=== PATIENT | female | born 1985 | race American Indian/Alaskan Native ===

== ENCOUNTER 2018-05-19 01:33 | Emergency (ER) | payer SELFPAY ==
[2018-05-19 05:02] LABS: Bilirubin,Urine NEG (Negative); Blood,Urine NEG (Negative); Color,Urine Yellow (Yellow); Mucus,Urine 2+ /HPF
[2018-05-19] MEDS ORDERED: FLAGYL PO ONE (07:15)
[2018-05-19] MEDS ORDERED: ZITHROMAX PO ONE (07:16)
--- NOTE | 2018-05-19 07:26 | Emergency Department Report ---
ED Dysuria HPI - HPI Chief Complaint: Urogenital-Female Stated Complaint: VAG D/C Time Seen by Provider: 05/19/18 07:13 Duration: 3 Days Severity: Mild Symptoms: Dysuria: Yes (VAG DC GUILLERMO IN AM YELLOW. 1 PARNTER. HAD TUBAL), Frequency: No, Suprapubic Pain: No, Flank Pain: No, Fever: No, Hematuria: No, Abdominal Pain: No, Previous UTI's: No ED Review of Systems ROS: Stated complaint: VAG D/C Other details as noted in HPI Comment: All other systems reviewed and negative Constitutional: no symptoms reported. denies: chills, fever Respiratory: no symptoms reported Endocrine: no symptoms reported Gastrointestinal: other (TUBAL). denies: abdominal pain, nausea, vomiting, diarrhea, constipation, hematemesis, melena, hematochezia Genitourinary: dysuria, discharge (YELLOW), other (LMP 1 M AGO; TUBAL; 1 SEXUAL PARTNER). denies: urgency, frequency, hematuria, abnormal menses, dyspareunia Skin: denies: rash, lesions ED Past Medical Hx - Past Medical History Previous Medical History?: No - Surgical History Past Surgical History?: Yes Additional Surgical History: tubaligation, tonsilectomy adenoids, keloid removed from ear - Family History Family history: no significant - Social History Smoking Status: Never Smoker Substance Use Type: Alcohol, Marijuana - Medications Home Medications: Home Medications Medication Instructions Recorded Confirmed Last Taken Type metroNIDAZOLE [Flagyl] 500 mg PO Q12HR #14 tab 05/19/18 Unknown Rx Dysuria Exam - Exam General: Vital signs noted. No distress. Alert and acting appropriately. Exam: Yes Moist Mucous Membranes, No CVA Tenderness, No Abdominal Tenderness, No Rigidity or Guarding Exam: PT UPSET THAT SHE HAS BEEN WAITING SO LONG. DENIES PREVIOUS STI. FROM [place]. 1 SEX PARTNER. YELLOW DC FOR 3 DAYS. ABOUT TO START PERIOD. TUBAL YEARS AGO. PARTNER WO SYMPTOMS. NO ABD TENDERNESS. PT ASLEEP AND COMFORTABLE WO FEVER. WALKING WO DIFFICULTY. Labs: Lab Results 05/19/18 Range/Units 04:37 Urine Color Yellow (Yellow) Urine Turbidity Clear (Clear) Urine pH 6.0 (5.0-7.0) Ur Specific [place] 1.030 (1.003-1.030) Urine Protein 30 mg/dl (Negative) mg/dL Urine Glucose (UA) Neg (Negative) mg/dL Urine Ketones Tr (Negative) mg/dL Urine Blood Neg (Negative) Urine Nitrite Neg (Negative) Urine Bilirubin Neg (Negative) Urine Urobilinogen 4.0 (<2.0) mg/dL Ur Leukocyte Esterase Tr (Negative) Urine WBC (Auto) 9.0 H (0.0-6.0) /HPF Urine RBC (Auto) 4.0 (0.0-6.0) /HPF U Epithel Cells (Auto) 1.0 (0-13.0) /HPF Urine Mucus 2+ /HPF ED Course Vital Signs 05/19/18 04:11 Temperature 98.8 F Pulse Rate 91 H Respiratory 14 Rate Blood Pressure 141/76 O2 Sat by Pulse 100 Oximetry - Reevaluation(s) Reevaluation #1: 05/19/18 07:43 EXAM COMPLETED NON TOXIC NON ILL. NO FEVER. NO CVA TENDERNESS. COMFORTABLE. AMBULATORY AND TAKING PO. LABS REVIEWED URINE NO NITRATES OR LEUKS YELLOW DC A PERIOD ALLERGIC TO CEPHALEXIN- THROAT SWELLING URINE SENT FOR GC URINE PREG IS PENDING DESPITE TUBAL WILL EVAL. PT REFUSES PELVIC BC SHE HAS HAD TO WAIT AND HAS TO BE AT WORK 8AM WILL TX WITH FLAGYL AT HOME GIVEN S/S LIKELY BV. DISCUSSED ETOH. AZITHRO. NO ROCEPHIN DT ALLERGY- DISCUSSED W PT. 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 REFERRAL GIVEN Reevaluation #2: 05/19/18 07:46 MAY DC WHEN U PREG IS DONE ED Medical Decision Making - Lab Data UA NEG NITRATE AND LEUK GC URINE SEND OUT P PREG P - Medical Decision Making URINE NO LEUK NO NITRATES GC URINE P REFUSES PELVIC NEEDS TO BE AT WORK 0800 FLAGYL FOR 7 D PER [facility] AZITHRO 1 GM PO HERE ALLERGY RO FOLLOW UP GIVEN - Differential Diagnosis UTI V BV V STI Critical care attestation.: If time is entered above; I have spent that time in minutes in the direct care of this critically ill patient, excluding procedure time. ED Disposition Clinical Impression: Vaginitis Disposition: DC-01 TO HOME OR SELFCARE Is pt being admited?: No Does the pt Need Aspirin: No Condition: Stable Instructions: Sexually Transmitted Diseases (ED), Safe Sex (ED) Additional Instructions: SAFE SEX PARTNERS SHOULD BE TESTED NO ALCOHOL REMEMBER YOU ALLERGY INTERFERES WITH TREATMENT IF SYMPTOMS PERSIST SEE YOUR OBGYN HYDRATE WITH WATER WELL Prescriptions: metroNIDAZOLE [Flagyl] 500 mg PO Q12HR #14 tab Referrals: PRIMARY CARE, [Primary Care Provider] - 3-5 Days MARTA CLIFFORD MD [Staff Physician] - 3-5 Days Forms: Work/School Release Form(ED) Time of Disposition: 07:29
[2018-05-19 08:00] VITALS: BP 123/100
== END 2018-05-19 08:01 | disposition home or self-care (01) ==
LOC: ED 01:33
DX: N76.0 Acute vaginitis (principal); F12.10 Cannabis abuse, uncomplicated; Z98.51 Tubal ligation status; Z90.89 Acquired absence of other organs; Z88.1 Allergy status to other antibiotic agents; Z88.8 Allergy status to other drugs, medicaments and biological substances
CPT/HCPCS: 81001; 87086; 99283

== ENCOUNTER 2019-02-25 14:25 | Emergency (ER) | payer OTHER ==
[2019-02-25 14:48] VITALS: BP 141/81
--- NOTE | 2019-02-25 14:54 | Emergency Department Report ---
ED ENT HPI - General Chief complaint: Dental/Oral Stated complaint: LT EAR PAIN/ULCER MOUTH Time Seen by Provider: 02/25/19 14:49 Source: patient Mode of arrival: Ambulatory Limitations: No Limitations - History of Present Illness Initial comments: This is a 33-year-old female nontoxic well in appearance with no signs of distress presents to the ED with complaint of left earache and ulcers in mouth. Patient denies any hearing loss. Denies any mastoid tenderness. Denies any fever, chills, headache, nausea, vomiting, chest pain or SOB. Denies any other complaints. MD complaint: ear pain, other (aphthous ulcers) -: days(s) Location: L ear Severity: mild Severity scale (0 -10): 8 Quality: aching Consistency: constant Improves with: none Worsens with: none Associated Symptoms: denies: fever, cough, gum swelling, toothache, pain with swallowing, sore throat, tinnitus, hearing loss, discharge from ear, rhinorrhea - Related Data Previous Rx's Medication Instructions Recorded Last Taken Type metroNIDAZOLE [Flagyl] 500 mg PO Q12HR #14 tab 05/19/18 Unknown Rx Amoxicillin [Amoxicillin TAB] 875 mg PO BID #20 tablet 02/25/19 Unknown Rx Nystas/Diphen/Xyl Visc/Mylanta 30 ml MM Q4H PRN 10 Days ml 02/25/19 Unknown Rx [Magic Mouthwash] Allergies Allergy/AdvReac Type Severity Reaction Status Date / Time cephalexin Allergy Anaphylaxis Verified 05/19/18 04:18 nitrofurantoin Allergy Hives Verified 05/19/18 04:18 [From Macrobid] ED Dental HPI - General Chief complaint: Dental/Oral Stated complaint: LT EAR PAIN/ULCER MOUTH Time Seen by Provider: 02/25/19 14:49 Source: patient Mode of arrival: Ambulatory Limitations: No Limitations - Related Data Previous Rx's Medication Instructions Recorded Last Taken Type metroNIDAZOLE [Flagyl] 500 mg PO Q12HR #14 tab 05/19/18 Unknown Rx Amoxicillin [Amoxicillin TAB] 875 mg PO BID #20 tablet 02/25/19 Unknown Rx Nystas/Diphen/Xyl Visc/Mylanta 30 ml MM Q4H PRN 10 Days ml 02/25/19 Unknown Rx [Magic Mouthwash] Allergies Allergy/AdvReac Type Severity Reaction Status Date / Time cephalexin Allergy Anaphylaxis Verified 05/19/18 04:18 nitrofurantoin Allergy Hives Verified 05/19/18 04:18 [From Macrobid] ED Review of Systems ROS: Stated complaint: LT EAR PAIN/ULCER MOUTH Other details as noted in HPI Constitutional: denies: chills, fever Eyes: denies: eye pain, eye discharge, vision change ENT: ear pain, other (mouth pain). denies: throat pain Respiratory: denies: cough, shortness of breath, wheezing Cardiovascular: denies: chest pain, palpitations Endocrine: no symptoms reported Gastrointestinal: denies: abdominal pain, nausea, diarrhea Genitourinary: denies: urgency, dysuria, discharge Musculoskeletal: denies: back pain, joint swelling, arthralgia Skin: denies: rash, lesions Neurological: denies: headache, weakness, paresthesias Psychiatric: denies: anxiety, depression Hematological/Lymphatic: denies: easy bleeding, easy bruising ED Past Medical Hx - Past Medical History Previous Medical History?: No - Surgical History Additional Surgical History: tubaligation, tonsilectomy adenoids, keloid removed from ear - Social History Smoking Status: Never Smoker Substance Use Type: None - Medications Home Medications: Home Medications Medication Instructions Recorded Confirmed Last Taken Type metroNIDAZOLE [Flagyl] 500 mg PO Q12HR #14 tab 05/19/18 Unknown Rx Amoxicillin [Amoxicillin TAB] 875 mg PO BID #20 tablet 02/25/19 Unknown Rx Nystas/Diphen/Xyl Visc/Mylanta 30 ml MM Q4H PRN 10 Days ml 02/25/19 Unknown Rx [Magic Mouthwash] ED Physical Exam - General Limitations: No Limitations General appearance: alert, in no apparent distress - Head Head exam: Present: atraumatic, normocephalic - Expanded ENT Exam Expanded Ear exam: Present: normal external inspection TM/Canal exam: Erythema: Left TM, Bulging: Left TM Mouth exam: Present: normal external inspection. Absent: drooling, trismus, muffled voice Teeth exam: Present: normal inspection Throat exam: Positive: other (some aphthous ulcers noted) - Neck Neck exam: Present: normal inspection, full ROM. Absent: tenderness, meningismus, lymphadenopathy - Extremities Exam Extremities exam: Present: normal inspection, full ROM - Back Exam Back exam: Present: normal inspection, full ROM - Neurological Exam Neurological exam: Present: alert, oriented X3 - Psychiatric Psychiatric exam: Present: normal affect, normal mood - Skin Skin exam: Present: warm, dry, intact, normal color. Absent: rash ED Course Vital Signs 02/25/19 14:47 Temperature 98.5 F Pulse Rate 85 Respiratory 18 Rate Blood Pressure 141/81 O2 Sat by Pulse 100 Oximetry - Reevaluation(s) Reevaluation #1: 02/25/19 14:53 PAtient is speaking in full sentences with on signs of distress noted. ED Medical Decision Making - Medical Decision Making Patient was instructed to Follow-up with a primary care doctor in 3-5 days or if symptoms worsen and continue return to emergency room as soon as possible. At time of discharge, the patient does not seem toxic or ill in appearance. No acute signs of distress noted. Patient agrees to discharge treatment plan of care. No further questions noted by the patient. Critical care attestation.: If time is entered above; I have spent that time in minutes in the direct care of this critically ill patient, excluding procedure time. ED Disposition Clinical Impression: Aphthous ulcer of mouth Left otitis media Qualifiers: Otitis media type: unspecified Qualified Code(s): H66.92 - Otitis media, unspecified, left ear Disposition: DC- TO HOME OR SELFCARE Is pt being admited?: No Does the pt Need Aspirin: No Condition: Stable Additional Instructions: Follow-up with a primary care doctor in 3-5 days or if symptoms worsen and continue return to emergency room as soon as possible. Prescriptions: Amoxicillin [Amoxicillin TAB] 875 mg PO BID #20 tablet Nystas/Diphen/Xyl Visc/Mylanta [Magic Mouthwash] 30 ml MM Q4H PRN 10 Days ml PRN Reason: Mouth Pain Referrals: PRIMARY CAREMD [Referring] - 3-5 Days LIZABETH SARMIENTO MD [Staff Physician] - 3-5 Days [facility] [Outside] - 3-5 Days [facility] [Outside] - 3-5 Days Forms: Work/School Release Form(ED)
== END 2019-02-25 15:00 | disposition home or self-care (01) ==
LOC: ED 14:25
DX: H66.92 Otitis media, unspecified, left ear (principal); K12.0 Recurrent oral aphthae; Z98.51 Tubal ligation status; Z90.89 Acquired absence of other organs; Z88.1 Allergy status to other antibiotic agents; Z88.8 Allergy status to other drugs, medicaments and biological substances
CPT/HCPCS: 99281